=== PATIENT | male | born 1955 ===

== ENCOUNTER 2019-02-28 05:51 | Inpatient (IN) ==
--- NOTE | 2019-02-21 14:10 | Anesthesiology Consultation ---
Date of Service February 21, 2019 Assessment & Plan (1) Encounter for pre-operative examination: Chart Review Chart Review: Acceptable Risk for Surgery and Patient seen in Pre Admission Testing Consults Requested none Teaching & Discussion Pre-Anesthesia Teaching/Discussion Notes: Instructed NPO after midnight before surgery, except medications with 15 cc of water. Medication instructions provided according to the PAT guidelines. History Surgery Operation Date: 02/28/19 07:30 Proposed Procedures p Robotic Assisted Laparoscopic Radical Retropubic Prostatectomy, Possible Open, Possible Pelvic Lymph Node Dissection, Possible Suprapubic Tube Placement - Hunter Lee MD Height/Weight Height: 5 ft 8 in Weight: 65 kg Allergies Allergy/AdvReac Type Severity Reaction Status Date / Time No Known Allergies Allergy Verified 02/15/19 14:15 Medications Home Medications Medication Instructions Recorded Confirmed Last Taken alprazolam [Xanax] 1 mg PO UD PRN 02/15/19 02/15/19 Unknown atorvastatin 40 mg PO HS 02/15/19 02/15/19 02/14/19 betamethasone dipropionate 1 applic TOPICAL UD PRN 02/15/19 02/15/19 Unknown clotrimazole-betamethasone 1 applic TOPICAL UD PRN 02/15/19 02/15/19 Unknown esomeprazole magnesium 40 mg PO HS 02/15/19 02/15/19 02/14/19 levothyroxine [Synthroid] 125 mcg PO HS 02/15/19 02/15/19 02/14/19 Past Medical History Medical History Acid reflux Anxiety Anxiety due to invasive procedure Degenerative disc disease LOWER BACK Hyperlipidemia Hypothyroidism Prostate CA Past Family History Family History Mother Family history of brain cancer Other Family history of prostate cancer in father Past Surgical History Surgical History H/O oral surgery DENTAL EXTRACTION History of colonoscopy Past Anesthesia History No Hx of Anesthesia Complications and No Family Hx of Anesthesia Complications History of PONV No Motion Sickness Screening History of Motion Sickness: No Social History Smoking Status: Never smoker Do You Dip or Chew Tobacco: Yes (1 CAN A DAY - ADVISED NPO) Hx Alcohol Use: Yes Alcohol type: hard liquor alcohol intake frequency: other Alcohol Intake Frequency Comment: 5-6 WHISKY A DAY Hx Substance Use: Yes (COCAINE ON OCCASION - ) substance use type: crack/cocaine Last Used Substance Other:: 2 WEEKS AGO Exercise / Class Metabolic Activity II 4-5 Yardwork/Stairs/Walk up hill (Able to climb FOS. Denies CP or SOB. ) Review of Systems Patient denies chest pain, shortness of breath, dyspnea on exertion, joint pain, cough, wheezing, palpitations. +Acid Reflux (controlled on medication) Physical Exam Vital Signs BP: 126/74 P: 64 R: 16 T: 98.8 SPO2: 99% on RA ENMT Mouth: + poor dentition Thyromental Distance: > or= 3.5 Finger Breadths (3.5) Mallampati Class: III Neck normal visual inspection; neck extension not limited Respiratory normal respiratory effort Auscultation: lungs clear to auscultation bilaterally Cardiovascular Rate/Rhythm: regular rate and regular rhythm Heart Sounds: no murmur Vessels: no carotid bruit Neurologic moves all extremities Psychiatric Orientation: alert and oriented x 3 Testing Electrocardiogram Date: 02/21/19 Findings: + NSR @ (64) Normal sinus rhythm with sinus arrhythmia. Chest X-Ray Date: 02/21/19 Findings: + NAD FINDINGS: The bones soft tissues and hemidiaphragms are normal. The cardiomediastinal silhouette is normal. The lungs are clear. The pulmonary vasculature is normal. IMPRESSION: Negative chest. Laboratory Results 02/21/19 14:40 02/21/19 14:40 Urine Color Yellow 02/21/19 14:40 Urine Appearance Clear (Clear) 02/21/19 14:40 Urine pH 7.0 (4.5-7.5) 02/21/19 14:40 Ur Specific [place] 1.026 (1.000-1.030) 02/21/19 14:40 Urine Protein Negative (Negative) 02/21/19 14:40 Urine Glucose (UA) Negative (Negative) 02/21/19 14:40 Urine Ketones Trace (Negative) H 02/21/19 14:40 Urine Nitrite Negative (Negative) 02/21/19 14:40 Ur Leukocyte Esterase Negative (Negative) 02/21/19 14:40
--- NOTE | 2019-02-21 14:14 | PAT Medication Instructions ---
Medication Instructions Date of Service February 21, 2019 Home Medications alprazolam [Xanax] 1 mg PO NEEDED atorvastatin 40 mg PO HS betamethasone dipropionate 1 applic TOPICAL NEEDED clotrimazole-betamethasone 1 applic TOPICAL NEEDED esomeprazole magnesium 40 mg PO HS levothyroxine [Synthroid] 125 mcg PO HS STOP taking 24 hours before surgery betamethasone dipropionate 1 applic TOPICAL NEEDED clotrimazole-betamethasone 1 applic TOPICAL NEEDED Take morning of surgery With a small sip of water, OTHERWISE NOTHING TO EAT OR DRINK AFTER MIDNIGHT: alprazolam [Xanax] 1 mg PO NEEDED (up to 4 hours prior to surgery) Take evening before surgery alprazolam [Xanax] 1 mg PO NEEDED atorvastatin 40 mg PO HS esomeprazole magnesium 40 mg PO HS levothyroxine [Synthroid] 125 mcg PO HS Other Notes If you have any questions please call us at [phone] or [phone] or [phone] or [phone]
--- NOTE | 2019-02-21 15:02 | XRay Report ---
XR chest Pre-admission PA/Lat CLINICAL HISTORY: pat preoperative evaluation COMPARISON STUDY: No previous studies for comparison. FINDINGS: The bones soft tissues and hemidiaphragms are normal. The cardiomediastinal silhouette is n ormal. The lungs are clear. The pulmonary vasculature is normal. IMPRESSION: Negative chest. The above report was generated using voice recognition software. It may contain grammatical, syntax or spelling errors. Electronically signed by: Philip Stauffer M.D. 02/21/2019 3:01 PM
[2019-02-21 15:35] LABS: Basophils # (auto) 0.02 K/uL (0-0.2); Basophils % (auto) 0.2 %; Eosinophils # (auto) 0.14 K/uL (0-0.5); Eosinophils % (auto) 1.6 %; Hematocrit (blood only) 42.8 % (42-52); Hemoglobin 14.4 g/dL (14.0-18.0); Immature Granulocytes # (auto) 0.01 K/uL (0.00-0.02); Immature Granulocytes % (auto) 0.1 %; Lymphocytes # (auto) 2.09 K/uL (1.2-3.4); Lymphocytes % (auto) 23.2 %; Mean Corpuscular Hgb Conc 33.6 g/dL (32-36); Mean Corpuscular Volume 91.6 fL (80-100); Mean Platelet Volume 9.6 fL (7.4-10.4); Monocytes % (auto) 7.8 %; Neutrophils # (auto) 6.03 K/uL (1.4-6.5); Neutrophils % (auto) 67.1 %; Platelet Count 221 K/uL (130-400); RDW Coefficient of Variation 12.8 % (11.5-14.5); RDW Standard Deviation 42.5 fL (36.4-46.3); Red Blood Count 4.67 M/uL (4.7-6.1); White Blood Count 8.99 K/uL (4.8-10.8)
[2019-02-21 15:38] LABS: Appearance Urine Clear (Clear); Bilirubin Urine Negative (Negative); Blood Urine Negative (Negative); Color Urine Yellow; Glucose Urine UA Negative (Negative); Ketones Urine Trace (Negative); Leukocyte Esterase Urine Negative (Negative); Nitrite Urine Negative (Negative); Protein Urine Negative (Negative); Specific Gravity Urine 1.026 (1.000-1.030); Urobilinogen Urine Negative (Negative)
[2019-02-21 15:46] LABS: BUN Creatinine Ratio 14.8 (10-20); Calcium 8.3 mg/dl (8.5-10.1); Est GFR (African American) 94.1; Est GFR (Non-African American) 81.2
[2019-02-28] MEDS ORDERED: HEPARIN SOD 5,000 UNIT/0.5 ML VIAL SQ SCH (06:00)
[2019-02-28] MEDS ORDERED: LR 15ML/HR IV SCH (06:00)
[2019-02-28] MEDS ORDERED: CEFAZOLIN 2000MG 2,000 MG/15 ML SYR IV SCH (06:00)
[2019-02-28] MEDS ORDERED: ONDANSETRON INJ 2 MG/ML 2 ML VIAL ONE (06:38)
[2019-02-28] MEDS ORDERED: NEOSTIGMINE METHYLSULFATE 5 MG/5 ML SYR ONE (06:38)
[2019-02-28] MEDS ORDERED: LIDOCAINE HCL 2% 2 ML VIAL/AMP(20MG/ML) INFIL ONE (06:38)
[2019-02-28] MEDS ORDERED: GLYCOPYRROLATE 0.2 MG/ML VIAL ONE (06:38)
[2019-02-28] MEDS ORDERED: MIDAZOLAM HCL 1 MG/ML 2ML VIAL ONE ×2 (06:38→07:03)
[2019-02-28] MEDS ORDERED: ROCURONIUM BROMIDE 10 MG/ML 5 ML VIAL ONE ×2 (06:38→10:15)
[2019-02-28] MEDS ORDERED: PROPOFOL IV EMULSION 10 MG/ML 20 ML VIAL IV ONE (06:38)
[2019-02-28] MEDS ORDERED: DEXAMETHASONE SOD INJ 4 MG/ML VIAL ONE (06:38)
[2019-02-28] MEDS ORDERED: fentaNYL citrate 100 MCG/2 ML VIAL ONE ×2 (06:38→09:00)
[2019-02-28] MEDS ORDERED: BUPIVACAINE 0.5 % 5 MG/1 ML MPF 30ML VIAL ONE (06:56)
--- NOTE | 2019-02-28 07:19 | History & Physical Bridge Note ---
Date of Service February 28, 2019 History & Physical Bridge Note I have examined the patient, reviewed the History & Physical and in the interval since the performance of the History & Physical I have noted the following changes of clinical significance: no changes noted
[2019-02-28] MEDS ORDERED: BELLADONNA/OPIUM SUPP 60 MG SUPP PR ONE (07:50)
[2019-02-28] MEDS ORDERED: ONDANSETRON INJ 2 MG/ML 2 ML VIAL IV PRN ×2 (07:56→12:46)
[2019-02-28] MEDS ORDERED: PROMETHAZINE HCL 12.5 MG in SODIUM CHLORIDE 0.9% 50 ML IV PRN (07:56)
[2019-02-28] MEDS ORDERED: ePHEDrine sulfate 50 MG/ML AMP IV PRN (07:56)
[2019-02-28] MEDS ORDERED: ATROPINE SULFATE 0.1 MG/ML 10ML SYR IV PRN (07:56)
[2019-02-28] MEDS ORDERED: FLOSEAL HEMOSTATIC MATRIX 10ML TOP ONE (10:53)
[2019-02-28] MEDS ORDERED: SURGICEL ABSORB HEMOSTAT 2IN X 14IN TOP ONE (10:53)
[2019-02-28] MEDS ORDERED: LORazepam 2 MG/4 ML VIAL IV PRN (11:12)
[2019-02-28] MEDS ORDERED: LORazepam 1 MG/2 ML VIAL IV PRN (11:12)
[2019-02-28] MEDS ORDERED: LORazepam 3 MG/6 ML VIAL IV PRN (11:12)
[2019-02-28] MEDS ORDERED: ATIVAN IV ALCOHOL WITHDRAWL IV SCH (11:15)
[2019-02-28] MEDS: fentaNYL citrate 100 MCG/2 ML VIAL IV PRN ×2 (11:25→11:35)
--- NOTE | 2019-02-28 11:28 | Operative Report ---
Post Operative Report Pre & Post Diagnosis Operation Date: 02/28/19 07:30 Pre-Op Diagnosis: Prostate Cancer Post-Op Diagnosis: Prostate Cancer Procedure Operation Date: 02/28/19 07:30 Actual Procedures p Robotic Assisted Laparoscopic Radical Prostatectomy, Bilateral Pelvic Lymph Node Dissection - Hunter Lee MD Surgeon Lionel Lee MD Inspector [employer] Carrier Queenie Aldrich Estimated Blood Loss 200 Findings Consistent with Post-Op Diagnosis Specimens 1. Prostate and seminal vesicles 2. periprostatic fat 3. Left pelvic lymph nodes 4. Right pelvic lymph nodes Description of Procedure The patient was identified in the preoperative holding area, appropriate informed consents were reviewed and completed, and he was transported to the operating suite. Subcutaneous heparin was administered in the pre-operative holding area. Upon arrival in the operating suite, he received appropriate antibiotics and general anesthesia. He was positioned in dorsal lithotomy, a B&O suppository was inserted after digital rectal exam, and he was prepped and draped in standard fashion. A Dunn catheter was inserted in the sterile field. A Veress needle was passed per umbilicus with uniform insufflation of the abdomen to 15mmHg. He was placed in steep Trendelenburg position. A periumbilical incision was then made to accommodate a 12mm Visiport with 10mm 0degree laparoscope. Inspection of the abdomen was carried out, and there was no evidence of traumatic entry or injury secondary to the Veress needle. After confirming a clear anterior abdominal wall, ports were subsequently placed in standard robotic prostatectomy fashion without incident. To begin the robotic portion of the case, the left lateral aspect of the sigmoid was mobilized off of the left pelvic side wall to allow the pouch of Anthony to be appropriately visualized. Of note, he had relatively extensive adhesions of the left aspect of the sigmoid to the pelvic wall and also to the posterior wall of the bladder. I then made an incision in the pouch of Anthony, overlying the seminal vesicles. Both SVs as well as the ampullae of the vasa were entirely dissected, with the vasa transected 3cm from the prostate. The medial umbilical ligaments were then controlled with bipolar electrocautery just inferior to the umbilicus. Following cauterization, they were divided utilizing monopolar cautery. A peritoneal incision was carried from this location to the medial aspect of the internal inguinal rings bilaterally with care to avoid opening through the ring. This incision was concluded when the vas deferens was reached. Dissection of the bladder and prostate off of the posterior aspect of the pubic arch was completed allowing full visualization of the prostate. The fat overlying the prostate was removed en bloc and passed off the table as a specimen labeled "periprostatic fat". The endopelvic fascia was cleared during this portion of the procedure, and subsequently opened - first on the right and then the left. The incision through the endopelvic fascia began near the prostate-bladder junction and was carried to the apex with extreme care to preserve all lateral levator musculature as well as the periurethral musculature and sphincter complex. The puboprostatic ligaments were thinned slightly bilaterally before placing a 0-Vicryl figure of 8 stitch around the DVC. The lymph node dissection was then conducted. External iliac vessels were identified on the pelvic side wall. The packet of fat and lymphatic tissue that resides just under the iliac vein was elevated and off of the vein with a split and roll technique. The packet was dissected laterally to the circumflex vein and distally to the obturator nerve which was preserved. The proximal aspect of the packet was carried towards the bifurcation of the iliac vessels. A combination of monopolar and bipolar cautery were used to assist with control. Clips were placed at the proximal and distal aspects of the packet prior to transection. After completing the dissection on both sides, the packets were collected and passed off of the table as specimens labeled "pelvic lymph nodes". My attention then returned to the prostate, with identification of the bladder neck aided by gentle traction on the Dunn catheter and lateral to medial pressure at the presumed level of the bladder neck with the robotic instruments. An anterior cystotomy was made, the Dunn balloon deflated and the catheter guided through the incision to allow anterior retraction. I attempted to preserve maximal bladder neck musculature as I circumferentially dissected around the bladder neck. After incision through the posterior aspect of the mucosa, the dissection was carried through detrusor muscle until the bilateral ampullae of the vasa were identified. The previously dissected vasa and SVs were brought through the incision and used to elevated the prostate anteriorly. A posterior plane behind the prostate was then developed - splitting Denonvilliers's fascia. This dissection was carried as far as possible towards the apex as well as far as possible laterally. An incision in the lateral prostatic fascia was then made bilaterally to facilitate control of the vascular pedicles. The pedicles were each controlled with a series of Weck clips. The neurovascular bundles were identified and a somewhat guarded nerve sparing approach was taken bilaterally. The apical attachments of the prostate were remaining at that stage. The DVC was divided with bipolar electrocautery. Miryam-prostatic tissue incised with sharp dissection and monopolar cautery. Maximal urethral length was preserved before dividing the urethra sharply. The prostate was entirely freed at that point, and collected in an EndoCatch bag before being moved out of the field of vision. Hemostasis was confirmed and anastomosis of the bladder and urethra was completed utilizing a double armed V-Lock stitch. A new Dunn catheter was inserted and the anastomosis tested with irrigation. There was no evidence of leak. FloSeal coagulant was placed around the anastomosis. A olivia style stitch was placed bilaterally to functionally marsupialize the area of the lymph node dissection. The robot was undocked, the specimen extracted through expansion of the miryam- umbilical camera port. The fascia was closed with a series of 0-PDS figure of 8 stitches. The right legal executive assistant port was closed in two layers - with a figure of 8 0-Vicryl to reapproximate the fascia followed by 4-0 Monocryl to close the skin. Monocryl was used to close all other skin incisions. All wounds were dressed with Dermabond. The case was concluded and the patient taken to the PACU in stable condition. I attest to the content of the Intraoperative Record and any orders documented therein. Any exceptions are noted below.
[2019-02-28] MEDS: HYDROmorphone INJ 1 MG/ML SYRINGE IV PRN ×4 (11:43→12:08)
[2019-02-28 11:51] LABS: Basophils # (auto) 0.01 K/uL (0-0.2); Basophils % (auto) 0.1 %; Eosinophils # (auto) 0.02 K/uL (0-0.5); Eosinophils % (auto) 0.1 %; Hematocrit (blood only) 43.1 % (42-52); Hemoglobin 14.9 g/dL (14.0-18.0); Immature Granulocytes # (auto) 0.05 K/uL (0.00-0.02); Immature Granulocytes % (auto) 0.3 %; Lymphocytes # (auto) 0.86 K/uL (1.2-3.4); Lymphocytes % (auto) 5.1 %; Mean Corpuscular Volume 90.7 fL (80-100); Mean Platelet Volume 9.4 fL (7.4-10.4); Monocytes # (auto) 0.31 K/uL (0.11-0.59); Monocytes % (auto) 1.8 %; Neutrophils # (auto) 15.72 K/uL (1.4-6.5); Neutrophils % (auto) 92.6 %; Platelet Count 191 K/uL (130-400); RDW Coefficient of Variation 12.9 % (11.5-14.5); RDW Standard Deviation 42.5 fL (36.4-46.3); Red Blood Count 4.75 M/uL (4.7-6.1); White Blood Count 16.97 K/uL (4.8-10.8)
[2019-02-28 11:59] LABS: Mean Corpuscular Hgb Conc 34.6 g/dL (32-36)
[2019-02-28 12:07] LABS: BUN Creatinine Ratio 12.7 (10-20); Calcium 8.7 mg/dl (8.5-10.1); Creatinine Clr Calc Pharmacy 61.3 ml/min
--- NOTE | 2019-02-28 12:28 | Anesthesiology Progress Note ---
Date of Service February 28, 2019 Anesthesia Post Procedure Vital Signs Vital Signs: Temp Pulse Pulse Resp BP Pulse Ox 02/28/19 12:10 83 17 116/70 99 02/28/19 12:00 77 12 113/71 100 02/28/19 11:50 74 12 107/68 100 02/28/19 11:40 74 12 118/72 100 02/28/19 11:30 73 13 118/69 100 02/28/19 11:20 77 19 126/87 100 02/28/19 11:14 36.0 C L 96 H 17 129/81 100 02/28/19 06:29 36.5 C 57 L 20 110/74 99 Pain Intensity Abdomen: Pain Intensity: 6 Notes Mental Status: alert / awake / arousable and participated in evaluation Patient Amnestic to Procedure: Yes Nausea / Vomiting: adequately controlled Pain: adequately controlled Airway Patency, RR, SpO2: stable & adequate BP & HR: stable & adequate Hydration State: stable & adequate Anesthetic Complications: no major complications apparent and Pt Satisfied with anesthetic care
[2019-02-28] MEDS ORDERED: ACETAMINOPHEN 325 MG TAB PO PRN (12:46)
[2019-02-28] MEDS ORDERED: HYDROmorphone INJ 1 MG/ML SYRINGE IV PRN (12:46)
[2019-02-28] MEDS ORDERED: KETOROLAC TROMETHAMINE 15 MG/ML VIAL IV PRN (12:46)
[2019-02-28] MEDS ORDERED: HYDROmorphone INJ 0.5 MG/0.5 ML SYR IV PRN (12:46)
[2019-02-28] MEDS: OXYCODONE HCL IR 5 MG TAB (IMMEDIATE RELEASE) PO PRN ×2 (13:37→23:28)
[2019-02-28 13:49] LABS: Prothrombin Time 10.5 Seconds (9.0-12.0)
[2019-02-28] MEDS: LACTATED RINGER'S 1,000 ML IV SCH ×2 (14:11→23:29)
--- NOTE | 2019-02-28 16:23 | Urology Progress Note ---
Date of Service February 28, 2019 Assessment & Plan (1) Prostate CA: 63yo s/p RALP with BLND VS and labs stable. BP soft. SPO2 100% on 2LNC, pt asked to try room air. I obliged (on continuous pulse ox). Pt progressing as expected, in decent spirits. Expresses that he is very happy the procedure is over. Very anxious to know if we got "all the cancer out". Discussed expected clinical progression, and that pathology will be reviewed at post op visit. Concern for alcohol abuse preoperatively. Banana bag x1 ordered, alcohol withdrawal protocol ordered. Encouraged that he is hungry, asking for diet. Understands importance of clears tonight to prevent emesis. All questions answered. Continue to monitor closely. Subjective 63yo M s/p RALP with BLND. Sitting up in bed, visitors at bedside. Pt alert, rating pain 5/10. States he feels like he "got kicked by a mule". Denies n/v. Actually states he's hungry for the first time in 3 weeks. Labs reviewed- stable. Folate slightly low- will order Banana bag x1 Review of Systems All systems reviewed & are unremarkable except as noted in HPI & below Physical Exam Vital Signs (Past 24 Hours): Last Vital Signs Temp 36.6 C 02/28/19 15:16 Pulse 91 H 02/28/19 15:16 Resp 20 02/28/19 15:16 BP 93/62 L 02/28/19 15:16 Pulse Ox 99 02/28/19 15:16 Physical Exam: A&Ox3 RRR 2LNC with SPO2 100%. Dunn draining masood with minimal clots. Incisions C/D/I. Results & Data Laboratory Results Laboratory Results - last 48 hr 02/28/19 02/28/19 02/28/19 06:32 11:36 11:36 WBC 16.97 H RBC 4.75 Hgb 14.9 Hct 43.1 MCV 90.7 MCH 31.4 MCHC 34.6 RDW Std Deviation 42.5 RDW Coeff of Victor Hugo 12.9 Plt Count 191 MPV 9.4 Immature Gran % (Auto) 0.3 Neut % (Auto) 92.6 Lymph % (Auto) 5.1 [place] % (Auto) 1.8 Eos % (Auto) 0.1 Baso % (Auto) 0.1 Immature Gran # (Auto) 0.05 H Neut # (Auto) 15.72 H Lymph # (Auto) 0.86 L [place] # (Auto) 0.31 Eos # (Auto) 0.02 Baso # (Auto) 0.01 PT INR Sodium 139 Potassium 4.0 Chloride 106 Carbon Dioxide 28 Anion Gap 5.0 BUN 14 Creatinine 1.12 Est Cr Clr Drug Dosing 61.3 Est GFR ( Amer) 80.0 Est GFR (Non-Af Amer) 69.0 BUN/Creatinine Ratio 12.7 Glucose 122 H Calcium 8.7 Folate Blood Type A Negative Antibody Screen NEGATIVE 02/28/19 02/28/19 11:36 13:24 WBC RBC Hgb Hct MCV MCH MCHC RDW Std Deviation RDW Coeff of Victor Hugo Plt Count MPV Immature Gran % (Auto) Neut % (Auto) Lymph % (Auto) [place] % (Auto) Eos % (Auto) Baso % (Auto) Immature Gran # (Auto) Neut # (Auto) Lymph # (Auto) [place] # (Auto) Eos # (Auto) Baso # (Auto) PT 10.5 INR 1.0 Sodium Potassium Chloride Carbon Dioxide Anion Gap BUN Creatinine Est Cr Clr Drug Dosing Est GFR ( Amer) Est GFR (Non-Af Amer) BUN/Creatinine Ratio Glucose Calcium Folate 4.78 L Blood Type Antibody Screen
[2019-02-28] MEDS ORDERED: MULTI-VITAMIN INFUSION 10 ML, THIAMINE HCL 100 MG, FOLIC ACID 1 MG in SODIUM CHLORIDE 0... IV SCH (16:45)
[2019-02-28] MEDS: CEFAZOLIN 2000MG 2,000 MG/15 ML SYR IV SCH ×2 (17:06→23:36)
[2019-02-28] MEDS ORDERED: ATORVASTATIN 40 MG TAB PO SCH (21:00)
[2019-02-28] MEDS ORDERED: LEVOTHYROXINE SODIUM 125 MCG TABLET PO SCH (21:00)
[2019-02-28] MEDS: HEPARIN SOD 5,000 UNIT/0.5 ML VIAL SQ SCH (21:20)
[2019-03-01] MEDS: OXYCODONE HCL IR 5 MG TAB (IMMEDIATE RELEASE) PO PRN ×3 (03:46→11:14)
[2019-03-01] MEDS: LACTATED RINGER'S 1,000 ML IV SCH (07:15)
[2019-03-01 08:16] LABS: Basophils # (auto) 0.01 K/uL (0-0.2); Basophils % (auto) 0.1 %; Eosinophils # (auto) 0.05 K/uL (0-0.5); Eosinophils % (auto) 0.4 %; Hemoglobin 12.4 g/dL (14.0-18.0); Immature Granulocytes # (auto) 0.04 K/uL (0.00-0.02); Immature Granulocytes % (auto) 0.3 %; Lymphocytes # (auto) 2.19 K/uL (1.2-3.4); Lymphocytes % (auto) 19.1 %; Mean Corpuscular Hgb Conc 33.5 g/dL (32-36); Mean Corpuscular Volume 91.6 fL (80-100); Mean Platelet Volume 9.1 fL (7.4-10.4); Monocytes # (auto) 1.24 K/uL (0.11-0.59); Monocytes % (auto) 10.8 %; Neutrophils # (auto) 7.91 K/uL (1.4-6.5); Neutrophils % (auto) 69.3 %; Platelet Count 177 K/uL (130-400); RDW Coefficient of Variation 12.9 % (11.5-14.5); RDW Standard Deviation 43.4 fL (36.4-46.3); Red Blood Count 4.04 M/uL (4.7-6.1); White Blood Count 11.44 K/uL (4.8-10.8)
[2019-03-01 08:37] LABS: Calcium 8.5 mg/dl (8.5-10.1); Creatinine Clr Calc Pharmacy 73.8 ml/min; Est GFR (African American) 100.2; Est GFR (Non-African American) 86.5; Potassium 4.1 mmol/L (3.5-5.1)
[2019-03-01] MEDS: HEPARIN SOD 5,000 UNIT/0.5 ML VIAL SQ SCH (09:06)
--- NOTE | 2019-03-01 10:30 | Urology Progress Note ---
Date of Service March 01, 2019 Assessment & Plan (1) Prostate CA: 63yo s/p RALP with BLND Pt evaluated with Dr. Lee today. VS and labs stable. Progressing as expected. Will advance diet to regular. Encourage ambulation and use of IS. Discussed expected clinical progression. All questions answered by Dr. Lee. Plan to discharge later today if patient continues to progress as expected and tolerated regular diet. Nursing made aware. Discharge instructions reviewed, pt verbalizes understanding. Subjective Review of Systems All systems reviewed & are unremarkable except as noted in HPI & below 63yo M POD #1 s/p RALP with BLND. Pt did well overnight. Pain controlled with PO/IV options. Ambulated x1 so far. Denies n/v/f/c, ready for "real food". labs reviewed - slight drop in h/h as expected postop/dilutional. leukocytosis improved. Physical Exam Vital Signs (Past 24 Hours): Last Vital Signs Temp 37.0 C 03/01/19 07:55 Pulse 60 03/01/19 07:55 Resp 14 03/01/19 07:55 BP 110/70 03/01/19 07:55 Pulse Ox 96 03/01/19 07:55 Physical Exam: A&Ox3 RRR abd soft incisions tender as expected, c/d/i mcgee draining clear yellow, some sediment. no clots. Results & Data Laboratory Results Laboratory Results - last 48 hr 02/28/19 02/28/19 02/28/19 06:32 11:36 11:36 WBC 16.97 H RBC 4.75 Hgb 14.9 Hct 43.1 MCV 90.7 MCH 31.4 MCHC 34.6 RDW Std Deviation 42.5 RDW Coeff of Victor Hugo 12.9 Plt Count 191 MPV 9.4 Immature Gran % (Auto) 0.3 Neut % (Auto) 92.6 Lymph % (Auto) 5.1 [place] % (Auto) 1.8 Eos % (Auto) 0.1 Baso % (Auto) 0.1 Immature Gran # (Auto) 0.05 H Neut # (Auto) 15.72 H Lymph # (Auto) 0.86 L [place] # (Auto) 0.31 Eos # (Auto) 0.02 Baso # (Auto) 0.01 PT INR Sodium 139 Potassium 4.0 Chloride 106 Carbon Dioxide 28 Anion Gap 5.0 BUN 14 Creatinine 1.12 Est Cr Clr Drug Dosing 61.3 Est GFR ( Amer) 80.0 Est GFR (Non-Af Amer) 69.0 BUN/Creatinine Ratio 12.7 Glucose 122 H Calcium 8.7 Folate Blood Type A Negative Antibody Screen NEGATIVE 02/28/19 02/28/19 03/01/19 11:36 13:24 07:56 WBC 11.44 H RBC 4.04 L Hgb 12.4 L Hct 37.0 L MCV 91.6 MCH 30.7 MCHC 33.5 RDW Std Deviation 43.4 RDW Coeff of Victor Hugo 12.9 Plt Count 177 MPV 9.1 Immature Gran % (Auto) 0.3 Neut % (Auto) 69.3 Lymph % (Auto) 19.1 [place] % (Auto) 10.8 Eos % (Auto) 0.4 Baso % (Auto) 0.1 Immature Gran # (Auto) 0.04 H Neut # (Auto) 7.91 H Lymph # (Auto) 2.19 [place] # (Auto) 1.24 H Eos # (Auto) 0.05 Baso # (Auto) 0.01 PT 10.5 INR 1.0 Sodium Potassium Chloride Carbon Dioxide Anion Gap BUN Creatinine Est Cr Clr Drug Dosing Est GFR ( Amer) Est GFR (Non-Af Amer) BUN/Creatinine Ratio Glucose Calcium Folate 4.78 L Blood Type Antibody Screen 03/01/19 07:56 WBC RBC Hgb Hct MCV MCH MCHC RDW Std Deviation RDW Coeff of Victor Hugo Plt Count MPV Immature Gran % (Auto) Neut % (Auto) Lymph % (Auto) [place] % (Auto) Eos % (Auto) Baso % (Auto) Immature Gran # (Auto) Neut # (Auto) Lymph # (Auto) [place] # (Auto) Eos # (Auto) Baso # (Auto) PT INR Sodium 140 Potassium 4.1 Chloride 107 Carbon Dioxide 30 Anion Gap 3.0 BUN 13 Creatinine 0.93 Est Cr Clr Drug Dosing 73.8 Est GFR ( Amer) 100.2 Est GFR (Non-Af Amer) 86.5 BUN/Creatinine Ratio 14.0 Glucose 81 Calcium 8.5 Folate Blood Type Antibody Screen
--- NOTE | 2019-03-01 11:36 | Anesthesiology Progress Note ---
Date of Service March 01, 2019 Anesthesia Post Procedure Vital Signs Vital Signs: Temp Pulse Pulse Pulse Resp BP BP 03/01/19 10:54 37.0 C 60 91 H 80 14 112/65 110/70 03/01/19 07:55 37.0 C 60 14 110/70 03/01/19 03:33 37.2 C 80 14 112/65 02/28/19 23:17 37.2 C 80 14 95/57 L 02/28/19 20:00 36.6 C 94 H 20 102/59 L 02/28/19 15:16 36.6 C 91 H 20 93/62 L 02/28/19 14:35 78 20 101/66 02/28/19 13:31 72 16 107/70 02/28/19 13:05 36.4 C L 84 15 106/72 02/28/19 12:35 36.4 C L 83 16 103/66 02/28/19 12:20 37.2 C 81 12 105/64 02/28/19 12:10 83 17 116/70 02/28/19 12:00 77 12 113/71 02/28/19 11:50 74 12 107/68 02/28/19 11:40 74 12 118/72 Pulse Ox 03/01/19 10:54 96 03/01/19 07:55 96 03/01/19 03:33 96 02/28/19 23:17 96 02/28/19 20:00 97 02/28/19 15:16 99 02/28/19 14:35 98 02/28/19 13:31 100 02/28/19 13:05 98 02/28/19 12:35 96 02/28/19 12:20 99 02/28/19 12:10 99 02/28/19 12:00 100 02/28/19 11:50 100 02/28/19 11:40 100 Pain Intensity Abdomen: Pain Intensity: 4 Notes Mental Status: alert / awake / arousable and participated in evaluation Patient Amnestic to Procedure: Yes Nausea / Vomiting: see Notes below Pain: adequately controlled Airway Patency, RR, SpO2: stable & adequate BP & HR: stable & adequate Hydration State: stable & adequate Anesthetic Complications: no major complications apparent and Pt Satisfied with anesthetic care
--- NOTE | 2019-03-13 13:00 | Discharge Summary ---
Date of Service March 13, 2019 Admission HPI Per Admitting Provider prostate cancer here for treatment Principal Diagnosis prostate cancer Discharge Data Allergies Allergy/AdvReac Type Severity Reaction Status Date / Time No Known Allergies Allergy Verified 02/28/19 06:27 Procedures Performed Operation Date: 02/28/19 07:30 Actual Procedures p Robotic Assisted Laparoscopic Radical Prostatectomy, Bilateral Pelvic Lymph Node Dissection - Hunter Lee MD Hospital Course (1) Prostate CA: Patient admitted for a robotic prostatectomy - details of the procedure as dictated previously in my operative report - in summary, he tolerated the procedure very well - he was in stable condition overnight with appropriate urine output and stable labs - he was subsequently discharged home with a mcgee catheter - he was in stable condition at the time of discharge Total Time Total Time Spent Total Time Spent (In Minutes): 10 Total Time Includes: Examination of the Patient, Discharge Planning, Medication Reconciliation and Communication With Other Providers Discharge Plan Discharge Items Patient Disposition: Home - Self-Care Reason For Visit: Prostate Cancer Discharge Diagnosis: prostate cancer Discharge Goals: Improve disease control, Increase independence, Learn about illness and Therapeutic intervention Activity: As commented below Activity Comment: Walking and stairs in your home are okay. Lifting: No more than 25 pounds Bathing: Keep incision dry Bathing Comment: Okay to shower tomorrow. No tub baths. No picking at surgical glue. Sexual Activity: Wait until after follow-up appointment Exercise/Sports: Rest today and Wait until after follow-up appointment Driving/Machine Use: Resume 1 day after discharge Driving/Machine Use Comment: Please do not drive while taking prescription pain medication. Non-emergency contact: Urologist Call non-emergency contact if: you have any medication questions, your pain is concerning for you, your temperature is above 101, your wound has increased redness, your wound has increased drainage and your wound pain has increased Follow-up/Referrals: Hunter Lee MD [Physician] - 03/07/19 11:00 am (Nursing Visit for catheter removal. Start abx on 03/06 morning, continue through 03/[address] Lee on 03/13 at 10:40AM) EDMOND AGUIAR PA [Primary Care Provider] - Diet: Regular Addtl Provider Instructions: Please take all medications as prescribed and keep all follow-ups as scheduled. Please call our office at [phone] with any questions, concerns or need to reschedule appointments for any reason. We are happy to assist you Activity: We recommend having someone with you for the first few days after surgery to help care for you. For the first 2 weeks after surgery, we would like you to get up and walk around your house. However, we recommend limit physical activity that would increase your heart rate. This will allow your body to rest and heal. Take naps if you feel tired. Don't lift anything heavier than 25 pounds, mow the law or ride a bicycle until your follow-up appointment. Please avoid long car rides. Home Care: Unless directed otherwise, drink 6 to 8 glasses of water a day (enough to keep your urine light colored). This will also help keep a healthy flow of urine. We recommend using a stool softener for the first two weeks to avoid constipation. We have sent an antibiotic to your pharmacy of choice. Please begin antibiotic as prescribed the day BEFORE your scheduled voiding trial at [facility]. Please continue antibiotic every 12 hours through the day AFTER your voiding trial. Mcgee Catheter Care: Keep the catheter well secured with either a leg back or leg strap with large bag. Empty your bag when it's about half full. You may notice some blood in the bag. This is normal after surgery and while the catheter is in place. Use mild soap (such as Dove or Dial) and water to wash the catheter and the head of your penis daily, or more frequently if needed. Return to your normal diet, we encourage good protein intake to promote healing. You may shower as normal. Please avoid tub baths or soaking until catheter removed and incisions well healed. Wearing sweat pants while you have the catheter is recommended, they will be more comfortable. Follow-up Your follow up appointments for having your catheter removed, and follow up with your physician should already be scheduled. If you have any questions regarding this, please contact our office. Your final pathology report will be discussed at your physician follow-up appointment. Call [facility] at [phone] right away if you have any of the following: Chest pain or trouble breathing (call 911 or go to the hospital) Fever of 101F or higher, uncontrolled vomiting Heavy bleeding, clots, or bright red blood from the catheter Catheter that falls out or stops draining Foul-smelling discharge from your catheter Redness, swelling, warmth, or increased pain at your incision site Drainage, pus, or bleeding from your incision Prescriptions: New acetaminophen-codeine [Tylenol-Codeine #3] 300-30 mg tablet 1 tab PO TID PRN (Reason: pain) Qty: 14 RF: 0 docusate sodium [Colace] 100 mg capsule 100 mg PO BID Qty: 60 RF: 0 ciprofloxacin HCl 500 mg tablet 500 mg PO BID Qty: 6 RF: 0 Continued atorvastatin 40 mg Tablet 40 mg PO HS RF: 0 alprazolam [Xanax] 1 mg Tablet 1 mg PO UD PRN (Reason: Anxiety) RF: 0 clotrimazole-betamethasone 1-0.05 % Lotion 1 applic TOPICAL UD PRN (Reason: Rash) RF: 0 esomeprazole magnesium 40 mg Capsule,Delayed Release(Dr/Ec) 40 mg PO HS RF: 0 betamethasone dipropionate 0.05 % Cream 1 applic TOPICAL UD PRN (Reason: Rash) RF: 0 levothyroxine [Synthroid] 125 mcg Tablet 125 mcg PO HS RF: 0 Stand-Alone Forms: [facility], [facility] [employer]/Other Patient Handouts: Catheter Bag Urinary Empty Clean, Catheter Indwelling Urinary Dc, Leg Bag Care Dc Discharge Orders: Discharge Order (Routine); Ordered 03/01/19 Ordered By: Queenie Aldrich Admission Data Admit Date/Time: 02/28/19 12:43 Attending Provider: Hunter Lee Admit Provider: Hunter Lee Primary Care Provider: EDMOND AGUIAR Service: Surgical Services Other Interventions: Discharge Summary Assessment (RN) Last Done: 03/01/19 10:54 Pending Studies at Discharge: Yes DC Date/Time DO NOT enter until pt leaves facility: 03/01/19 11:48
== END 2019-03-01 11:48 | disposition home or self-care (01) | DRG 708 ==
LOC: ASU 05:51 → 3W 12:43